=== PATIENT | female | born 1940 | race Caucasian/White ===

== ENCOUNTER 2023-04-03 16:58 | Emergency (ER) | payer OTHER, MEDICARE, SELFPAY ==
[2023-04-03 17:01] VITALS: BP 130/96; PULSE 91; RESP 16; TEMP 37.2; O2SAT 98; BMI 10.9
--- NOTE | 2023-04-03 17:33 | RAD_ITS ---
STUDY: X-RAY - RIGHT HAND REASON FOR EXAM: Female, 82 years old. Injury/Pain TECHNIQUE: 3 view(s) of the hand. COMPARISON: None. FINDINGS: Normal radiocarpal articulation. Normal distal radioulnar joint. There is diffuse demineralization of the carpal bones. There is degenerative joint disease of the scaphotrapezium / trapezoid articulation. The remainder of the carpal articulations are normal. There is degenerative arthrosis of the carpometacarpal (CMC) articulation of the thumb. Normal second through fifth carpometacarpal joints. Normal metacarpi. Normal metacarpophalangeal joint of the thumb. Normal interphalangeal joint of the thumb. Normal proximal and distal phalanges of the thumb. Normal metacarpophalangeal joints of the second through fifth fingers. There is diffuse articular joint space narrowing of the proximal and distal interphalangeal joints of the second through fifth fingers, but without erosive changes or periarticular soft tissue swelling. Normal phalanges of the second through fifth fingers. There is calcification in the soft tissues of the wrist. There is swelling of the fingers. RAD/Hand Min 3 Views IMPRESSION: Degenerative joint disease of the hand and wrist, as described above. Electronically Signed: Negrito Maldonado MD at 18:25 EDT ,
--- NOTE | 2023-04-03 17:33 | RAD_ITS ---
STUDY: X-RAY - RIGHT ANKLE REASON FOR EXAM: Female, 82 years old. Injury/Pain TECHNIQUE: 3 view(s) of the ankle. COMPARISON: None. FINDINGS: Normal visualized distal tibia. There is acute fracture of the lateral malleolus of the distal fibula. Normal tibiotalar articulation and ankle mortise. Normal visualized talus. There are plantar and dorsal spurs of the calcaneus. The visualized subtalar, talonavicular, calcaneocuboid and tarsal articulations are normal. There is lateral soft tissue swelling. RAD/Ankle min 3 Views IMPRESSION: Distal fibula fracture. Electronically Signed: Negrito Maldonado MD at 18:19 EDT ,
[2023-04-03] MEDS: Acetaminophen 500 MG Tablet 1000 MG PO (17:37)
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
--- NOTE | 2023-04-03 17:54 | RAD_ITS ---
STUDY: X-RAY - RIGHT TIBIA AND FIBULA REASON FOR EXAM: Female, 82 years old. Injury/Pain TECHNIQUE: 2 view(s) of the tibia and fibula were obtained. COMPARISON: None. FINDINGS: There is demineralization of the tibia and fibula. There is acute oblique fracture of the distal fibula. The soft tissue structures are unremarkable. RAD/Tibia & Fibula 2 Views IMPRESSION: Distal fibula fracture. Electronically Signed: Negrito Maldonado MD at 18:23 EDT ,
[2023-04-03 19:59] VITALS: BP 124/67; PULSE 88; RESP 18; O2SAT 98
== END 2023-04-03 20:45 | disposition home or self-care (01) ==
PROVIDERS: Emergency Provider Emergency Medicine; Visit Provider Emergency Medicine
DX: S82.831A Other fracture of upper and lower end of right fibula, initial encounter for closed fracture (principal); Y92.410 Unspecified street and highway as the place of occurrence of the external cause; S60.221A Contusion of right hand, initial encounter; V43.52XA Car driver injured in collision with other type car in traffic accident, initial encounter; W22.11XA Striking against or struck by driver side automobile airbag, initial encounter; Z85.89 Personal history of malignant neoplasm of other organs and systems
CPT/HCPCS: 29515; 73130; 73590; 73610; 99285

== ENCOUNTER 2023-06-14 09:00 | Outpatient (RCR) | payer MEDICARE, SELFPAY ==
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
--- NOTE | 2023-06-14 09:20 | HP.PTDCSUM ---
Discharge Summary D/C summary: It has been my pleasure to treat AMILCAR ZARAGOZA referred by Dr. Torey Cohen DPM, with the diagnosis of R ankle fracture for a total of 3 visit(s). Discharge Date: 06/14/23 Please see the following information for a summary of their discharge status. Subjective Subjective: No pain. Achy at times if overactive if on feet alot. /10 and rest gets rid of it. Sleeping well. To doctor tomorrow. Life is normal. Gets tired quicker but does everything. HEP going well with OTB 3x10 Overall Improvement % Improvement: 100 Objective Objective/Function: Full arOM R ankle symmetrical with L. strength is 4+ in DF, PF, inv and 4 in eversion on R vs 4+ all on L. walks normal without antalgia, steps normal with one rail. good balance and normal activities at home Goals Goal 1:: full aROM and no pain in 4 weeks to aid with walking no boot when allowed. Goal Progress: Goal Met Goal 2:: I appropr HEP to limiti futre limitations when able to walk Goal Progress: Goal Met Goal 3:: Pateint feel 100 % back to normal walking and activity Goal Progress: Goal Met Goal 4:: LEFS 50 Goal Progress: Goal Met Plan Plan: d/c to HEP D/C Information d/c sentence: If there are questions or concerns regarding this patient's physical therapy, please feel free to call me at [phone]. Thank you for the referral of this patient. Sincerely, Perico Hsu, DPT, OCS, CSCS Balance/Gait/Functional tests Balance/Special Test Scores Lower Extremity Functional Score: 72 Improvement % Improvement: 100
== END 2023-06-14 19:00 | disposition home or self-care (01) ==
LOC: PT 09:00
PROVIDERS: Referring Provider Podiatrist Foot & Ankle Surgery; Visit Provider Podiatrist Foot & Ankle Surgery
DX: S82.891D Other fracture of right lower leg, subsequent encounter for closed fracture with routine healing (principal)
CPT/HCPCS: 97110; 97161; 97164